=== PATIENT | male | born 1990 | race Caucasian/White ===

== ENCOUNTER 2023-04-10 10:23 | Outpatient (CLI) | payer OTHER, SELFPAY ==
--- NOTE | ~2023-04-10 | XR_ITS ---
Clinical Indication: Chest pain PA and lateral views of the chest: Comparison: None Findings: The lungs are clear, without evidence of focal consolidation or pleural effusion. Cardiome diastinal silhouette is within normal limits. Probable mild compression deformity of what is probably T11.. Impression: Clear lungs. Mild compression deformity of what is probably T11. Reviewed, dictated and finalized at location . Impression: Clear lungs. Mild compression deformity of what is probably T11.
== END 2023-04-10 10:24 | disposition home or self-care (01) ==
PROVIDERS: PCP Physician Assistant; Visit Provider Physician Assistant
DX: R07.89 Other chest pain (principal); M53.84 Other specified dorsopathies, thoracic region
CPT/HCPCS: 71046

== ENCOUNTER 2023-04-17 11:16 | Outpatient (CLI) | payer OTHER, SELFPAY ==
--- NOTE | ~2023-04-17 | XR_ITS ---
Thoracic spine: Clinical Indication: Back pain AP and lateral views were performed. There are mild anterior wedging deformities of T10 and T11. No subluxation evident. The intervertebra l disc spaces appear normal. Paravertebral soft tissues appear normal. Impression: Mild anterior wedging deformities of T10 and T11, consistent with mild compression deformities. Reviewed, dictated and finalized at location . Impression: Mild anterior wedging deformities of T10 and T11, consistent with mild compress ion deformities.
== END 2023-04-17 11:17 | disposition home or self-care (01) ==
PROVIDERS: PCP Physician Assistant
DX: M48.54XA Collapsed vertebra, not elsewhere classified, thoracic region, initial encounter for fracture (principal); M99.02 Segmental and somatic dysfunction of thoracic region; M99.08 Segmental and somatic dysfunction of rib cage; R07.81 Pleurodynia
CPT/HCPCS: 72070

== ENCOUNTER 2023-06-25 11:00 | Outpatient (RCR) | payer OTHER, SELFPAY ==
--- NOTE | 2023-04-23 13:20 | PTOPEVAL1 ---
Assessment and note entered by Delmy Kirby, PT Evaluation Information Assessment Status Evaluation Diagnosis strain of front wall of thorax S29.011A Therapy Diagnosis Pain in right chest wall, abnormal posture Onset October 2022 Subjective Information Pain in thoracic wall Pt states this began in October this year (approx 6 months) Was under truck working outsdie and got underneath truck. Notes was in bad positions under truck instead of using a felipe. That night, sat in living room and right chest pain and spasm felt like a heart attack. Made everything in my chest seize and convulse . Checked his pulse t nad was somewhat high, went to bed and when got up the next day felt alright but then with standing started to do it again. Went to emergency room did EKG and heart attack was ruled out. They referred him back to his primary doctor. After thinking about it he remembered 2 years ago, just before deer hunting was on a ladder about 6 feet up, was cleaning gutters, ladder slid down and rode the ladder down onto concrete. Didn't think about the fact that he had bruises on his chest from incident. In October noted his chest started doing this again. Lost his energy after this, didn't feel sick but the spasming in chest would happen and he would have to lay down. Tried Icy Hot, was deficient in vitamin D with blood testing, is taking Calcium and Magnesium to help with muscles. Went to chiropractic pain relief, reports T11-12 have fused, chiro states costochondritis. 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 States chiro has been using activator and theragun on back and chest. Stretching in chest hears popping and snapping Reported Pain Level Pain Score 0,0: Self Report Assessment PT Clinical Summary Pt presents w/ complaints of pain in right side of chest with associated muscle spasms. Reports initiated about 6 months ago after working on his truck. Recalls injurt from 2 years prior involving a fall with a ladder, and significant bruising. Pt reports he has been seeing chiropractic which has helped but has not current home or discharge plan for activities. Today demos multiple areas of significant soft tissue adhesions, tone, and tenderness along with abnormal postu
--- NOTE | 2023-04-23 13:21 | OPREHPOC ---
Outpatient Therapy Plan of Care This is a Multidisciplinary Plan of Care that may contain components documented by all disciplines (PT, OT, and ST.) PT Problem 1 PT Problem #1 Knowledge Deficit PT Goal 1 Goal Pt will be independent in home exercise program Target Visit 8 PT Problem 2 PT Problem #2 Impaired Flexibility PT Goal 1 Goal Pt will demo pec major flexibility within normal limits Target Visit 8 PT Problem 3 PT Problem #3 Pain PT Goal 1 Goal Pt will report resolution of discomfort Target Visit 8 PT Problem 4 PT Problem #4 Impaired Endurance PT Goal 1 Goal Pt will demo ability to maintain appropriate scapular positioning throughout entire session without cueing. Target Visit 8
--- NOTE | 2023-05-19 11:24 | PCPTNOTE ---
Clinic called patient & cancelled scheduled appointment this date due to insurance requirements pending due to insurance policy change.
--- NOTE | 2023-05-22 17:31 | PTOPPROG ---
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 Chest felt really fatigued, and that night muscles didnt want to calm down. Reports will start to feel good but then will try to do some extra, but then pays for it . Has not noticed seizing and convulsing in the chest as much. Is better able to take deep breaths but still feels like tethers all around my chest and tightness everywhere Has been continuing chiropractic and recently started laser therapy with chiropractor as well Is concerned about insurance covering visits. Self perceived improvement: 25% improved overall. Assessment PT Clinical Summary Pt has made progress in intensity of discomfort however with the increased labor required for his job, he has difficulty maintaining lower levels of discomfort. Demo's improved pectoralis flexibility however base on reports of discomfort, pt is likely overusing pectoralis muscles as compensatory measure for weak core musculature. As pt job requires high levels fo strength especially with push mowing, pt will benefit from cont therapy with a slight shift in focus of plan to include strengthening of supportive musculature while addressing soft tissue health. However, could also benefit from further imaging due to the severity of soft tissue deficits noted to rule out underlying soft tissue injury. Plan of Care Interventions Hot Pack/Cold Pack,Manual Therapy,Neuro Re- education,Patient/Caregiver Educati,Therapeutic Activities,Therapeutic Exercise PT Services Indicated Yes Treatment Frequency and 1-2x weekly x 6 visits Duration These treatments will address the objective and functional deficits as defined above. The patient will be advanced safely and appropriately in order for the patient to progress towards his/her prior level of function. Additional exercises will be introduced and as well as a comprehensive home exercise program upon discharge, if needed, ?to ensure carryover of functional gains achieved in the clinic. This treatment plan has been reviewed and agreement upon by the patient.
--- NOTE | 2023-06-26 10:53 | PTOPDC ---
Assessment and note entered by Delmy Kirby, PT Assessment Status Discharge Diagnosis strain of front wall of thorax S29.011A Onset October 2022 Subjective Information Pt noted last week had a great increase in energy and pain. Reports went out on the weekend and was tired and sore but in a normal way Then this week came back to work and did a lot on his own but feels good. States still feels tightness in chest and some slight little discomfort with activity. No spasms, no nausea, has been busy and active testing limits and has been pretty good. Still feels some aggravation in rotator cuff under arm pit but not bad. Feels 50% improved overall, prison back to how normally feels Reported Pain Level Pain Score 0: Self Report Assessment PT Clinical Summary Pt has made significant progress especially within the last two weeks with complaints of fatigue and discomfort. Throughout therapy pt has consistently complained of high levels of fatigue overall. Related to chest wall discomfort, pt is now able to perform high level activities with work with minimal discomfort. However adhesive tissue and tone have improved, but continues to what appears to be a nodule in right pectoralis superior to nipple line. Pt cont to demo diffuse smaller soft tissue nodules throughout all musculature. Pt has met multiple of his therapy goals and seems to have met max benefit from therapy at this time. May benefit from further testing related to soft tissue of pectoralis.
== END 2023-06-26 12:58 | disposition home or self-care (01) ==
LOC: ANHHIPT 11:00
PROVIDERS: PCP Physician Assistant; Visit Provider Physician Assistant
DX: S29.011D Strain of muscle and tendon of front wall of thorax, subsequent encounter (principal)
CPT/HCPCS: 97110; 97140; 97161; 97750; 97763

== ENCOUNTER 2023-07-27 12:48 | Outpatient (CLI) | payer OTHER, SELFPAY ==
--- NOTE | ~2023-07-27 | US_ITS ---
US soft tissue chest DATE: 07/27/2023 13:54 INDICATION: Strain of muscle of anterior chest wall, with complaint at 12:00 from the nipple 7 cm sup eriorly TECHNIQUE: Real-time ultrasound imaging of the right breast in the 12:00 area from the nipple and sup erior COMPARISON: None FINDINGS: No suspicious mass or shadowing is detected. IMPRESSION: Negative Reviewed, dictated and finalized at [facility]. Reviewed, dictated and finalized at location A. IMPRESSION: Negative
== END 2023-07-27 12:49 | disposition home or self-care (01) ==
PROVIDERS: PCP Physician Assistant; Visit Provider Physician Assistant
DX: S29.011A Strain of muscle and tendon of front wall of thorax, initial encounter (principal); T14.90XA Injury, unspecified, initial encounter
CPT/HCPCS: 76604

== ENCOUNTER 2023-11-01 12:37 | Outpatient (CLI) | payer OTHER, SELFPAY ==
--- NOTE | ~2023-11-01 | MR_ITS ---
EXAMINATION: MR chest wo con DATE: 11/01/2023 13:53 INDICATION: Anterior chest muscle strain TECHNIQUE: Magnetic resonance imaging (MRI) of the right side of the chest was performed without intr avenous contrast. A marker was placed over the region of concern. Sequences included axial T1-weight ed FSE, axial T2-weighted FS FSE, coronal T1-weighted FSE, coronal T2-weighted FS FSE, sagittal T1-we ighted FSE and sagittal T2-weighted FS FSE. COMPARISON: None. FINDINGS: Mild lower thoracic kyphosis with chronic mild anterior wedging of at T9 and T12 and moderate anterio r wedging at T10 and T11. Bone marrow signal is normal throughout. No fracture or pathologic marrow r eplacing process. The musculature in the visualized anterior left chest and at the visualized left sh oulder girdle is unremarkable with no evident atrophy or abnormal increase signal. No abnormal masses or fluid collections identified. No pathologically enlarged lymphadenopathy at the left axilla, left hilum or visualized portion of the mediastinum. Visualized portion of the right upper quadrant are u nremarkable. IMPRESSION: 1. Unremarkable MRI of the anterior left hemithorax with no evident muscle strain. Reviewed, dictated and finalized at location A. AN IMPRESSION: 1. Unremarkable MRI of the anterior left hemithorax with no evident muscle stra in.
== END 2023-11-01 12:38 | disposition home or self-care (01) ==
LOC: ANHIMG 12:38
PROVIDERS: PCP Physician Assistant; Visit Provider Physician Assistant
DX: S29.011A Strain of muscle and tendon of front wall of thorax, initial encounter (principal); X58.XXXA Exposure to other specified factors, initial encounter
CPT/HCPCS: 71550

== ENCOUNTER 2023-11-10 08:30 | Outpatient (RCR) | payer OTHER, SELFPAY ==
--- NOTE | 2023-09-18 17:07 | PTOPEVAL1 ---
Assessment and note entered by Delmy Kirby, PT Evaluation Information Assessment Status Evaluation Diagnosis strain in right thorax Therapy condition abnormal posture, pain in thoracic soft tissue Subjective Information Initial injury Nov 07 2021. Initial had spasms went to ER because thought was heart attacks. Found no heart attacks. Came to therapy did 2x weekly x 1 month and 1x weekly for a month then was discharged. This last year moved apartments, has been working on leave wearing a 30 lb backpack swinging right arm. States did well for a while but recently the spasms have returned. Notes when works really hard the next day feels fine but the next day will have lots of pain. Notes energy levels are doing better now, but still has some fatigue. States when eats correctly feels better but also notes eating poor has a significant difference on his energy levels. Has been using a theragun on the muscle area without issue, states feels that the muscle gun quiets his muscle. Feels the spasm in right medial rib cage Low/mid back was bothersome, has T10-11 autofusion . Reported Pain Level Pain Score 1: Self Report Assessment PT Clinical Summary Pt cont to have complaints of fatigue that have improved but appear variable, cont tenderness and spasms to right diaphragm and rib area, palpable lobule whitney and nodule to right pectoral area. Prior imaging did not yeild an image of nodule. Pt educated in decreased manipulation of nodule, adjustment of work equipment, and exercise regiment to decrease irritation to the area. Pt cont to demo mild postural abnormalities and muscle tightness. Pt will benefit from physical therapy to address soft tissue deficits, educate patient related to muscle patterns and irritation of structures, modify work related activities to decrease pain, and improve overall function. Plan of Care Interventions Hot Pack/Cold Pack,Manual Therapy,Neuro Re- education,Patient/Caregiver Educati,Therapeutic Activities,Th
--- NOTE | 2023-11-10 10:18 | PTOPDC ---
Assessment and note entered by Girma Shelton, PT Discharge Information Assessment Status Discharge Diagnosis Thoracic and anterior chest pain Onset October 2022 Subjective Information Reports that decompression feels good. He has had an MRI in the past month with no results. Past X- ray indicated T10-T11 wedge deformity. He has not been working much and feels that he is still hurting regardless of his activity level. Feels comfortable with updated HEP. Reported Pain Level Pain Score 0: Self Report Assessment PT Clinical Summary Patient demonstrates understanding of mobility deficits and new HEP to address. He is showing kinematic chain restriction from floor to cervical spine and each segmental motion was addressed through HEP. Patient is comfortable with mutual decision. Plan of Care PT Services Indicated D/C to HEP
--- NOTE | 2023-11-10 10:19 | OPREHPOC ---
Outpatient Therapy Plan of Care This is a Multidisciplinary Plan of Care that may contain components documented by all disciplines (PT, OT, and ST.) PT Problem 1 PT Problem #1 Knowledge Deficit PT Goal 1 Goal Pt will be independent in HEP Pt will verbalize understanding of diagnosis and prognosis Target Visit 4 Progress Met PT Problem 2 PT Problem #2 Pain PT Goal 1 Goal Pt will report greatest pain level at 3/10 or less to improve ADLs Target Visit 2 Progress Met PT Goal 2 Goal Pt will report resolution of pain to return to PLOF Target Visit 4 Progress Partially Met PT Problem 3 PT Problem #3 Impaired Flexibility PT Goal 1 Goal Pt will demo improved pectoralis flexibility Target Visit 4 Progress Partially Met
== END 2023-11-11 15:04 | disposition home or self-care (01) ==
LOC: ANHGOSHPT 08:30
PROVIDERS: PCP Physician Assistant; Visit Provider Physician Assistant
DX: S29.011D Strain of muscle and tendon of front wall of thorax, subsequent encounter (principal)
CPT/HCPCS: 97110; 97140; 97162